=== PATIENT | female | born 1970 ===

== ENCOUNTER → 2019-08-25 | Outpatient (CLI) | payer OTHER | END | disposition home or self-care (01) | LOC: ECT 09:20 | DX: F33.2 Major depressive disorder, recurrent severe without psychotic features (principal); F41.0 Panic disorder [episodic paroxysmal anxiety]; I10 Essential (primary) hypertension; Z79.899 Other long term (current) drug therapy ==

== ENCOUNTER 2019-08-28 05:05 | Outpatient (RCR) | payer OTHER ==
[~2019-08-28] VITALS: Ht 161.5 cm; Wt 97.1 kg
[2019-08-28] MEDS ORDERED: Esmolol 100mg/10ml Inj ONE (05:06)
[2019-08-28] MEDS ORDERED: Midazolam 2mg/2ml Inj ONE (05:06)
[2019-08-28] MEDS ORDERED: Ketorolac 60mg Inj IM ONE (05:06)
[2019-08-28] MEDS ORDERED: NS 500ML ONE (05:06)
[2019-08-28] MEDS ORDERED: Succinylcholine 20mg/ml 10ml vial ONE (05:06)
[2019-08-28 10:01] VITALS: BP 128/86
[2019-08-28] MEDS ORDERED: Ketorolac 30mg Inj IV ONE (10:13)
[2019-08-28 10:15] VITALS: BP 139/59
[2019-08-28 10:20] VITALS: BP 129/80
[2019-08-28 10:25] VITALS: BP 131/77
[2019-08-28 10:30] VITALS: BP 130/65
[2019-08-28 12:11] VITALS: BP 128/86
[2019-08-31] MEDS ORDERED: NS 500ML ONE (06:00)
[2019-08-31] MEDS ORDERED: Midazolam 2mg/2ml Inj ONE (06:00)
[2019-08-31] MEDS ORDERED: Succinylcholine 20mg/ml 10ml vial ONE (06:00)
[2019-08-31] MEDS ORDERED: Methohexital Sodium Syr 100mg/10ml IVP ONE (06:00)
[2019-08-31] MEDS ORDERED: Ketorolac 30mg Inj ONE (06:00)
[2019-08-31 08:49] VITALS: BP 143/86
[2019-08-31 09:01] VITALS: BP 124/64
[2019-08-31 09:06] VITALS: BP 124/70
[2019-08-31 09:11] VITALS: BP 131/67
[2019-08-31 09:16] VITALS: BP 133/67
[2019-09-02] MEDS ORDERED: NS 500ML ONE (06:00)
[2019-09-02] MEDS ORDERED: Ketorolac 30mg Inj ONE (06:00)
[2019-09-02] MEDS ORDERED: Succinylcholine 20mg/ml 10ml vial ONE (06:00)
[2019-09-02] MEDS ORDERED: Methohexital Sodium Syr 100mg/10ml IVP ONE (06:00)
[2019-09-02] MEDS ORDERED: Midazolam 2mg/2ml Inj ONE (06:00)
[2019-09-02 09:15] VITALS: BP 140/101
[2019-09-02 09:30] VITALS: BP 135/77
[2019-09-02 09:35] VITALS: BP 132/64
[2019-09-02 09:40] VITALS: BP 122/53
[2019-09-02 09:45] VITALS: BP 116/67
[2019-09-04] MEDS ORDERED: Midazolam 2mg/2ml Inj ONE (06:00)
[2019-09-04] MEDS ORDERED: Ketorolac 30mg Inj ONE (06:00)
[2019-09-04] MEDS ORDERED: NS 500ML ONE (06:00)
[2019-09-04] MEDS ORDERED: Succinylcholine 20mg/ml 10ml vial ONE (06:00)
[2019-09-04] MEDS ORDERED: Methohexital Sodium Syr 100mg/10ml IVP ONE (06:00)
[2019-09-04 09:02] VITALS: BP 141/85
[2019-09-04 09:22] VITALS: BP 131/66
[2019-09-04 09:27] VITALS: BP 136/77
[2019-09-04 09:32] VITALS: BP 120/54
[2019-09-04 09:36] VITALS: BP 115/58
[2019-09-04 09:41] VITALS: BP 118/61
[2019-09-07] MEDS ORDERED: Midazolam 2mg/2ml Inj ONE (06:00)
[2019-09-07] MEDS ORDERED: NS 500ML ONE (06:00)
[2019-09-07] MEDS ORDERED: Ketorolac 30mg Inj ONE (06:00)
[2019-09-07] MEDS ORDERED: Methohexital Sodium Syr 100mg/10ml IVP ONE (06:00)
[2019-09-07] MEDS ORDERED: Succinylcholine 20mg/ml 10ml vial ONE (06:00)
[2019-09-07 08:03] VITALS: BP 148/84
[2019-09-07 08:20] VITALS: BP 132/70
[2019-09-07 08:25] VITALS: BP 131/74
[2019-09-07 08:30] VITALS: BP 134/66
[2019-09-07 08:35] VITALS: BP 122/79
[2019-09-09] MEDS ORDERED: Methohexital Sodium Syr 100mg/10ml IVP ONE (09:00)
[2019-09-09] MEDS ORDERED: NS 500ML ONE (09:00)
[2019-09-09] MEDS ORDERED: Midazolam 2mg/2ml Inj ONE (09:00)
[2019-09-09] MEDS ORDERED: Succinylcholine 20mg/ml 10ml vial ONE (09:00)
[2019-09-09] MEDS ORDERED: Ketorolac 60mg Inj IM ONE (09:00)
[2019-09-09 10:02] VITALS: BP 137/85
[2019-09-09 10:15] VITALS: BP 138/71
[2019-09-09 10:20] VITALS: BP 129/80
[2019-09-09 10:25] VITALS: BP 113/90
[2019-09-09 10:30] VITALS: BP 138/73
== END 2019-09-12 | disposition home or self-care (01) ==
LOC: ECT 05:05
DX: F33.2 Major depressive disorder, recurrent severe without psychotic features (principal)
CPT/HCPCS: 90870; J0330; J1885; J2250; J2405; J7040

== ENCOUNTER 2019-09-14 05:52 | Outpatient (RCR) | payer OTHER ==
[~2019-09-14] VITALS: Ht 160 cm; Wt 97.1 kg
[2019-09-14] MEDS ORDERED: Ketorolac 60mg Inj IM ONE (05:53)
[2019-09-14] MEDS ORDERED: Succinylcholine 20mg/ml 10ml vial ONE (05:53)
[2019-09-14] MEDS ORDERED: NS 500ML ONE (05:53)
[2019-09-14] MEDS ORDERED: Midazolam 2mg/2ml Inj ONE (05:53)
[2019-09-14] MEDS ORDERED: Methohexital Sodium Syr 100mg/10ml IVP ONE (05:53)
[2019-09-14 10:09] VITALS: BP 130/94
[2019-09-14 10:31] VITALS: BP 126/55
[2019-09-14 10:36] VITALS: BP 136/71
[2019-09-14 10:41] VITALS: BP 135/75
[2019-09-14 10:46] VITALS: BP 147/70
[2019-09-21] MEDS ORDERED: Ketorolac 30mg Inj ONE (06:00)
[2019-09-21] MEDS ORDERED: Methohexital Sodium Syr 100mg/10ml IVP ONE (06:00)
[2019-09-21] MEDS ORDERED: NS 500ML ONE (06:00)
[2019-09-21] MEDS ORDERED: Midazolam 2mg/2ml Inj ONE (06:00)
[2019-09-21] MEDS ORDERED: Succinylcholine 20mg/ml 10ml vial ONE (06:00)
[2019-09-21 08:59] VITALS: BP 134/85
[2019-09-21 09:11] VITALS: BP 124/60
[2019-09-21 09:16] VITALS: BP 128/73
[2019-09-21 09:21] VITALS: BP 130/72
[2019-09-21 09:26] VITALS: BP 131/66
[2019-10-02] MEDS ORDERED: Methohexital Sodium Syr 100mg/10ml IVP ONE (06:00)
[2019-10-02] MEDS ORDERED: NS 500ML ONE (06:00)
[2019-10-02] MEDS ORDERED: Succinylcholine 20mg/ml 10ml vial ONE (06:00)
[2019-10-02] MEDS ORDERED: Midazolam 2mg/2ml Inj ONE (06:00)
[2019-10-02] MEDS ORDERED: Ketorolac 30mg Inj ONE (06:00)
[2019-10-02 08:28] VITALS: BP 115/86
[2019-10-02 08:42] VITALS: BP 119/56
[2019-10-02 08:47] VITALS: BP 105/62
[2019-10-02 08:52] VITALS: BP 125/67
[2019-10-02 08:57] VITALS: BP 115/65
== END 2019-10-13 | disposition home or self-care (01) ==
LOC: ECT 05:52
DX: F33.2 Major depressive disorder, recurrent severe without psychotic features (principal)
CPT/HCPCS: 90870; J2250; J2405

== ENCOUNTER 2019-12-09 05:17 | Outpatient (RCR) | payer OTHER ==
[~2019-12-09] VITALS: Ht 30.5 cm; Wt 0.5 kg
[2019-12-09] MEDS ORDERED: Succinylcholine 20mg/ml 10ml vial ONE (05:18)
[2019-12-09] MEDS ORDERED: Methohexital Sodium Syr 100mg/10ml IVP ONE (05:18)
[2019-12-09] MEDS ORDERED: NS 500ML ONE (05:18)
[2019-12-09] MEDS ORDERED: Ketorolac 60mg Inj IM ONE (05:18)
[2019-12-09] MEDS ORDERED: Midazolam 2mg/2ml Inj ONE (05:18)
[2019-12-09 09:20] VITALS: BP 137/81
[2019-12-09 09:33] VITALS: BP 117/60
[2019-12-09 09:38] VITALS: BP 125/70
[2019-12-09 09:43] VITALS: BP 116/63
[2019-12-09 09:48] VITALS: BP 117/68
== END 2019-12-12 | disposition home or self-care (01) ==
LOC: ECT 05:17
DX: F33.2 Major depressive disorder, recurrent severe without psychotic features (principal)
CPT/HCPCS: 90870; J0330; J2250; J2405; J7040